=== PATIENT | female | born 1960 | race Caucasian/White ===

== ENCOUNTER 2017-02-17 09:47 | Day surgery (SDC) | payer BC ==
[2017-02-17] MEDS ORDERED: ceFAZolin 2 GM in Premix Bag 1 BAG IV ONE (09:49)
[2017-02-17] MEDS ORDERED: Lactated Ringers 1,000 ML IV SCH (10:00)
--- NOTE | 2017-02-17 11:28 | PCM.PREANE ---
Preanesthetic Assessment - Anesthesia/Transfusion/Family Hx Anesthesia History: Prior Anesthesia Without Reaction Family History of Anesthesia Reaction: No Transfusion History: No Prior Transfusion(s) - Review of Systems General: No Symptoms Pulmonary: No Symptoms Cardiovascular: No Symptoms Gastrointestinal: No symptoms Neurological: No Symptoms Other: Reports: None - Physical Assessment NPO Status Date: 02/16/17 NPO Status Time: 23:30 O2 Sat by Pulse Oximetry: 97 Respiratory Rate: 14 Vital Signs: Last Vital Signs Temp 36.1 C 02/17/17 10:40 Pulse 60 02/17/17 10:40 Resp 14 02/17/17 10:40 BP 116/55 L 02/17/17 10:40 Pulse Ox 97 02/17/17 10:40 Height: 1.65 m Weight: 72.121 kg ASA Class: 2 Mental Status: Alert & Oriented x3 Airway Class: Mallampati = 1 Dentition: Reports: Normal Dentition Lungs: Clear to auscultation Cardiovascular: Regular Rate, Regular Rhythm - Allergies Allergies/Adverse Reactions: Allergies Allergy/AdvReac Type Severity Reaction Status Date / Time tegaderm tape Allergy Rash Uncoded 12/16/16 10:10 [facility] - Anesthesia Plan Pre-Op Medication Ordered: None - Acknowledgements Anesthesia Type Planned: General Anesthesia, MAC Pt an Appropriate Candidate for the Planned Anesthesia: Yes Alternatives and Risks of Anesthesia Discussed w Pt/Guardian: Yes Pt/Guardian Understands and Agrees with Anesthesia Plan: Yes PreAnesthesia Questionnaire - Past Health History Medical/Surgical History: Denies Medical/Surgical History Other HEENT History: wears glasses Cardiovascular History: Reports: None Respiratory History: Reports: None Gastrointestinal History: Reports: GERD, Irritable bowel syndrome Genitourinary History: Reports: Renal calculus Other Genitourinary History: 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 Asymptomatic Psychiatric History: Reports: None Endocrine/Metabolic History: Reports: None Hematologic History: Reports: None Immunologic History: Reports: None Oncologic (Cancer) History: Reports: None Dermatologic History: Reports: None - Past Surgical History Head Surgeries/Procedures: Reports: Shunt HEENT Surgical History: Reports: None Cardiovascular Surgical History: Reports: None Respiratory Surgical History: Reports: None GI Surgical History: Reports: Appendectomy, Cholecystectomy, Other (see below) Other GI Surgeries/Procedures: hemorrhoidectomy Female Surgical History: Reports: Hysterectomy, Tubal ligation Endocrine Surgical History: Reports: None Neurological Surgical History: Reports: C-Spine, Spinal fusion Other Neurological Surgeries/Procedures: Neuroendoscopic placement of Ventric Cath attached to shunt Musculoskeletal Surgical History: Reports: Shoulder surgery Other Musculoskeletal Surgeries/Procedures:: bilateral foot surgery Oncologic Surgical History: Reports: None Dermatological Surgical History: Reports: None - SUBSTANCE USE Smoking Status *Q: Current Every Day Smoker Tobacco Use Within Last Twelve Months: Cigarettes Recreational Drug Use History: No - HOME MEDS Home Medications: Home Meds Zolpidem Tartrate [Zolpidem Tartrate ER] 12.5 mg PO BEDTIME 02/12/17 [History] - CURRENT (IN HOUSE) MEDS Current Meds: Current Medications Lactated Ringer's (Ringers, Lactated) 1,000 mls @ 125 mls/hr IV ASDIRECTED [facility] Last Admin: 02/17/17 10:42 Dose: 125 mls/hr Discontinued Medications Cefazolin Sodium/Dextrose 2 gm (/ Premix) 50 mls @ 100 mls/hr IV ONETIME ONE Stop: 02/17/17 10:18 Preanesthetic Assessment - ANESTHESIA/TRANSFUSION/FAMILY HX Anesthesia/Transfusion History: No Prior Transfusion(s), Prior Anesthesia Family History of Anesthesia Reaction: No Intubation History: Unknown - PHYSICAL ASSESSMENT O2 Sat by Pulse Oximetry: 97 RR: 14 Vital Signs: Last Vital Signs Temp 36.1 C 02/17/17 10:40 Pulse 60 02/17/17 10:40 Resp 14 02/17/17 10:40 BP 116/55 L 02/17/17 10:40 Pulse Ox 97 02/17/17 10:40 Height: 1.65 m Weight: 72.121 kg NPO Status Date: 02/16/17 NPO Status Time: 23:30 - ALLERGIES Allergies/Adverse Reactions: Allergies Allergy/AdvReac Type Severity Reaction Status Date / Time tegaderm tape Allergy Rash Uncoded 12/16/16 10:10 [facility]
[2017-02-17] MEDS ORDERED: ceFAZolin 1 GM Vial ONE (11:52)
[2017-02-17] MEDS ORDERED: Bupivacaine 0.5% 30 ML SDV ONE (11:52)
[2017-02-17] MEDS ORDERED: Lidocaine 1% 20 ML MDV ONE (11:53)
[2017-02-17] MEDS ORDERED: fentaNYL 100 MCG/2 ML SDV ONE (12:16)
[2017-02-17] MEDS ORDERED: Lidocaine 2% 5 ML SDV ONE (12:16)
[2017-02-17] MEDS ORDERED: Midazolam 1 MG/ML 2 ML SDV ONE (12:16)
[2017-02-17] MEDS ORDERED: Propofol 200 MG/20 ML SDV ONE ×2 (12:16→14:52)
[2017-02-17] MEDS ORDERED: Ketorolac 30 MG/ML SDV ONE (12:17)
[2017-02-17] MEDS ORDERED: Ondansetron 4 MG/2 ML SDV ONE (12:17)
[2017-02-17] MEDS ORDERED: fentaNYL 250 MCG/5 ML SDV ONE (12:17)
[2017-02-17] MEDS ORDERED: ePHEDrine 50 MG/ML SDV ONE ×2 (13:48→14:53)
--- NOTE | 2017-02-17 15:25 | PN ---
Preoperative Progress Note. PREOPERATIVE DIAGNOSES: 1. Nonunion of fifth metatarsal right foot. 2. Contracted tendon, fifth toe of the right foot. PLANNED PROCEDURE: Repair of nonunion 5th metatarsal with and without bone graft on the right foot, also capsulotomy with extensor tendon lengthening of the 5th metatarsophalangeal joint, right foot. CONSENT: Signed and in the chart. ANESTHESIA: General. The patient confirms n.p.o. since midnight. History and physical was completed by Marques Neumann and Dr. Marino Washington MD, with no contraindications to surgery. PAST MEDICAL HISTORY: The patient is allergic to Tegaderm. CURRENT MEDICATIONS: Zolpidem tartrate ER 12.5 mg oral tablet, extended release one tablet at bedtime. PAST MEDICAL HISTORY: Includes history of Arnold Chiari syndrome with hydrocephalus, history of migraine headaches and insomnia. PAST SURGICAL HISTORY: Includes appendectomy, cholecystectomy, hemorrhoidectomy, hysterectomy, lower back surgery, neck surgery, catheter placement related to the hydrocephalus, shoulder surgery, and tubal ligation. LABORATORY DATA: White blood cell 8.25, red blood cell 4.34, hemoglobin 13.6, hematocrit 39.6, and platelets 252. Urinalysis was unremarkable. Sodium 143, potassium 4.1, chloride 108, CO2 of 24, BUN 16, creatinine 0.7, calcium 9.0, random glucose 91. INR 0.92, prothrombin time 10.0 seconds and partial thromboplastin time was 27 seconds. EKG showed normal sinus rhythm. Chest x-ray was read as normal. The patient presents for repair of 5th metatarsal nonunion today and also capsulotomy and extensor tendon lengthening at the 5th metatarsophalangeal joint both on the right foot. No contraindications to surgery and no guarantees given or implied. LEROY / FLAQUITA /[id number]
[2017-02-17] MEDS ORDERED: fentaNYL 100 MCG/2 ML SDV IVPUSH PRN (16:23)
[2017-02-17] MEDS ORDERED: HYDROmorphone 2 MG/ML Syringe IVPUSH ONE (16:23)
[2017-02-17] MEDS ORDERED: HYDROmorphone 2 MG/ML Syringe ONE (16:30)
--- NOTE | 2017-02-17 16:44 | PCM.OPNOTE ---
- General Post-Op/Procedure Note Date of Surgery/Procedure: 02/17/17 Operative Procedure(s): 1. repair of nonunion fifth metatarsal right foot with bone graft. 2. capsulotomy and extensor tendon lengthening fifth metatarsalphalangeal joint right foot Findings: consistent with diagnoses Pre Op Diagnosis: 1. nonunion fifth metatarsal right foot. 2. contracted tendon fifth metatarsalphalangeal joint right foot Post-Op Diagnosis: 1. nonunion fifth metatarsal right foot. 2. contracted tendon fifth metatarsalphalangeal joint right foot Anesthesia Technique: General LMA Primary Surgeon: Grabiel Madden Anesthesia Provider: Odin Sharma Pathology: bone debrided from nonunion fifth metatarsal right foot EBL in mLs: 10 Condition: Good Free Text/Narrative:: injectables: 8 ml 0.5% marcaine plain materials: 4-0 vicryl 4-0 prolene Pelican 3.0mm non locking fully threaded T8 screw, 10 mm length, x2 Raj [place] plate, holes, 22 mm Pelican Bio4 bone matrix 2.5 cc Raj 2.0 mm Asnis Micro Cannulated Screw Titanium 20 mm length
--- NOTE | 2017-02-17 16:52 | CR ---
EXAMINATION: Right foot HISTORY: fifth metatarsal nonunion COMPARISON: None TECHNIQUE: 3 fluoroscopic images provided. FINDINGS/IMPRESSION: Operative control films demonstrate screw and plate fixation of a mid fifth met atarsal fracture. An oblique screw is also noted.
--- NOTE | 2017-02-17 17:00 | PCM.POSTAN ---
POST ANESTHESIA ASSESSMENT - MENTAL STATUS Mental Status: alert, oriented - RESPIRATORY Respiratory Status: respiratory rate WNL, airway patent - CARDIOVASCULAR CV Status: pulse rate WNL, blood pressure stable - GASTROINTESTINAL GI Status: no symptoms - POST OP HYDRATION Hydration Status: adequate & stable
--- NOTE | 2017-02-17 18:08 | PCM48HPAN ---
Post Anesthesia Note - EVALUATION WITHIN 48HRS OF ANESTHETIC Vital Signs in Normal Range: Yes Patient Participated in Evaluation: Yes Respiratory Function Stable: Yes Airway Patent: Yes Cardiovascular Function Stable: Yes Hydration Status Stable: Yes Pain Control Satisfactory: Yes Nausea and Vomiting Control Satisfactory: Yes Mental Status Recovered: Yes
[2017-02-17] MEDS ORDERED: Acetaminophen/HYDROcodone 325-5 MG Tab PO PRN (18:24)
[2017-02-17 19:51] VITALS: BP 102/73
--- NOTE | 2017-02-18 01:13 | OR ---
SURGEON: Grabiel Madden DPM DATE OF PROCEDURE: 02/17/2017 IDENTIFICATION.: Patient is a 56-year-old female. PREOPERATIVE DIAGNOSIS: 1. Nonunion 5th metatarsal right foot. 2. Contracted tendon 5th metatarsal phalangeal joint right foot. POSTOPERATIVE DIAGNOSIS: 1. Nonunion 5th metatarsal right foot. 2. Contracted tendon 5th metatarsal phalangeal joint right foot. PROCEDURE: 1. Repair of nonunion 5th metatarsal right foot with bone graft. 2. Capsulotomy and extensor tendon lengthening 5th metatarsophalangeal joint, right foot. ANESTHESIA: General. HEMOSTASIS: Above ankle pneumatic tourniquet inflated on the right lower extremity to a pressure of 250 mmHg after an Esmarch bandage exsanguination. ESTIMATED BLOOD LOSS: 10 mL. MATERIALS: 4-0 Vicryl, 4-0 Prolene. Raj 3.0 mm nonlocking fully threaded T8 screw measuring 10 mm in length x2. [employer] [facility] Turner plate 3 holes 22 mm length. Medical Lake bio4 Bone Matrix 2.5 mL and Medical [place] 2.0 mm Asnis micro cannulated screw titanium 20 mm in length. INJECTABLES: 8 mL of 0.5% Marcaine plain. PATHOLOGY: Bone debrided from nonunion of the 5th metatarsal right foot. CONDITION: The patient tolerated the procedure and anesthesia well without any complications noted or reported. JUSTIFICATION FOR PROCEDURE: The patient, identified by her name, is a 56-year-old patient who presented to my office earlier this month with a complicated history of surgery on the right foot. Initially, it appears that the surgery was to address a tailor's bunion type of deformity and this was several years ago. The patient was seen at that time, and operated on by another urologist whose name I do not have and subsequent to that, the patient developed a nonunion and painful hardware; this hardware was then removed approximately two years ago by the same surgeon. The patient was then treated with casting for approximately three months and was informed by the surgeon that she had healed. Since that time the patient has developed increasing pain to the point where it simply became unbearable for her and upon presenting in my office and being examined, she was x-rayed and clearly this patient has a nonunion over the 5th metatarsal shaft created by an elective osteotomy. It appears that there was an oblique osteotomy done in the 5th metatarsal shaft approximately [address] from the base and there was a nonunion present. Also clinically, the patient has a lot of pain in the 5th metatarsophalangeal joint and is also upset that her 5th toe is cocked up and does not touch the ground even on weightbearing. Clinically, I noted that the patient had an extremely tight extensor tendon going over the 5th ray, clearly that is impacting the deformity on the 5th toe and additionally the 5th metatarsophalangeal joint is contracted further exacerbating the state of the 5th toe. I explained to the patient that while surgery at this point is advisable to attempt and corrected the nonunion, it has at best in my opinion, a 50% chance of succeeding in correcting the nonunion. The patient also stated that she was treated with a bone stimulator after the prior 2nd surgery and additionally the patient smokes approximately half pack per day at the time that I saw her, however, I advised her that it is imperative that she do everything she can to stop or greatly reduced her smoking in order to have a more reasonable chance of healing this nonunion. This morning, the patient did inform me prior to surgery that she was down to one cigarette per day, which can only be helpful. Conservative treatments are simply not possible to address these deformities. The tendon needs to be lengthened and the nonunion needs to be addressed. I advised the patient that in the event that the nonunion persists and that even after surgical correction, we are unable to relieve her enough pain, partial amputation of the 5th ray would be the logical next step. CONSENT: The patient was told of the benefits as well as the possible side effects of surgery and the patient signed the consent form with a witness present and all patient questions were answered. No guarantees of success were given or implied. DESCRIPTION OF THE PROCEDURE: The patient was brought into the operating room and placed on the operating table in supine position. At which time, an aseptic scrub and drape was performed about the patient's right lower extremity. After anesthesia had been induced as described above, the incision line from prior surgery was utilized to guide the incision for this surgery, therefore no marking pen was utilized. After an Esmarch bandage exsanguination, the pneumatic tourniquet was inflated to a pressure of 250 mmHg and procedure one commenced. Procedure #1. Capsulotomy of the 5th metatarsophalangeal joint with extensor tendon lengthening, right foot. The incision was made from proximal to distal over the prior incision line from approximately mid 5th metatarsal shaft, dorsal aspect proceeding distally over the proximal phalanx of the 5th toe. A large amount of scar tissue was noted. Adhesions were present throughout the area and were carefully dissected to reveal the extensor tendon of the 5th ray of the right foot. Care was taken to cut clamp and/or ligate any small bleeders. Any identified neurovascular structures and muscle bellies were retracted as necessary and protected and the incision was deepened and undermining of the skin and subcutaneous tissue was done using a mosquito curved hemostat. The extensor tendon was identified and was incised from proximal to distal. To achieve a Z-plasty of the tendon the tendon edges were then retracted proximally and distally and tagged with 4-0 Vicryl suture. Attention was then focused on the 5th metatarsal phalangeal joint. Further adhesions were dissected away with sharp and blunt dissection and a McGlamry elevator was used to perform a capsulotomy of the 5th metatarsophalangeal joint. Attention was then directed to the nonunion and procedure #2 commenced. Procedure #2. Repair of the nonunion of the 5th metatarsal of the right foot with bone graft. Dissection down to bone was performed over the identified bone callus and intraoperative fluoroscopy was utilized throughout this procedure. A small bone rongeur was used to clip away portions of the bone callus which then revealed the nonunion which was oblique running proximal lateral to distal medial. A large amount of nonviable material including full bone and scar tissue was found and removed, a portion of the debrided bone was then sent to pathology for gross and histologic examination. Using a small K-wire multiple holes were drilled on both the proximal and distal sides of the 5th metatarsal bone about the nonunion site. No intramedullary or bleeding was noted and normally I would expect to see some sign of bleeding there even under hemostasis. The area was flushed with copious amounts of normal sterile saline, re-examined and a small amount of further bone was debrided. I then realigned the distal portion of the nonunion to achieve improved alignment with the proximal portion and a [employer] [facility] K-wire was used to guide the screw, (during this process the K-wire broke both pieces were removed from the surgical site) which was then measured and a 20 mm length Medical [place] 2.0 mm Asnis micro cannulated titanium screw was inserted from dorsal distal to proximal plantar lateral crossing the nonunion site and was tightened to achieve improved compression at the site. The remaining gap was filled with bone matrix taken from the 2.5 mL supply of Raj bio4 bone matrix material. The area was then re-examined and under intraoperative fluoroscopy, I determined the appropriate area to place a Medical [place] 22 mm long three-hole plate with one hole distal to the nonunion site and two holes proximal. This was placed on the lateral aspect of the shaft of the 5th metatarsal. Holes were drilled, one through the distal hole and one on the proximal most hole and both sides were fixated of this plate with a [place] 3.0 mm x 10 mm length nonlocking fully threaded T8 screw. Greatly improved alignment was noted on intraoperative fluoroscopy as well as compression of the nonunion site that we had prepared. Attention was then returned to the extensor tendon which was then reapproximated under proper physiologic tension and this resulted in a lengthening of the tendon. The toe which had previously been elevated was then judged to be lowered into alignment with the other toes of the foot and this should result in some improved function and appearance for the patient as well as reduction in pain. 8 mm of 0.5% Marcaine plain was infiltrated after closure of the incision site, which was performed with 4-0 Vicryl to reapproximate the deep and subcutaneous tissue, and 4-0 Prolene suture for the superficial skin. The tourniquet was deflated, as it achieved the 2-hour roxi. It was deflated promptly and closure of the distal portion of the superficial skin was completed after deflation of the tourniquet. The area was covered with Betadine-soaked Xeroform gauze, Kerlix gauze and a Kerlix roll and then secured with a 2-inch TOR bandage. An Orthoglass posterior splint was then applied after appropriately layering the lower extremity of the right foot with cast padding, and the posterior splint was secured with a 4-inch TOR bandage. The patient tolerated the procedure and anesthesia well with no complications noted or reported. And there was a prompt hyperemic response to all digits of the right lower extremity upon deflation of the tourniquet. The patient was then transferred to the recovery room and after a brief stay in recovery room. The patient is to be discharged home with instructions for postoperative care. The patient will be strictly nonweightbearing. The patient has analgesic medication prescription and patient has my cell phone and office phone number and will be following up in the 1st part of next week, unless concerns arise prior to that, in which case she will be seen sooner. LEROY SAMS /[id number] DAYAMI
== END 2017-02-17 19:20 | disposition home or self-care (01) ==
LOC: MW.SDS 09:47
PROVIDERS: ATTEND Podiatrist Foot & Ankle Surgery
PROC: 0SNM0ZZ Release Right Metatarsal-Phalangeal Joint, Open Approach (ICD-10-PCS; principal; 2017-02-17)
PROC: 0QU Lower Bones, Supplement (ICD-10-PCS; 2017-02-17)
DX: M96.0 Pseudarthrosis after fusion or arthrodesis (principal); M62.471 Contracture of muscle, right ankle and foot; K58.9 Irritable bowel syndrome, unspecified; G47.00 Insomnia, unspecified; Q07.02 Arnold-Chiari syndrome with hydrocephalus; F17.210 Nicotine dependence, cigarettes, uncomplicated; Z87.442 Personal history of urinary calculi; Y83.8 Other surgical procedures as the cause of abnormal reaction of the patient, or of later complication, without mention of misadventure at the time of the procedure
CPT/HCPCS: 28270; 28322; 76001; 88304; 88311; A9270; C1713; J1885; J2250; J2405; J3010; J7120; 01480; J0690; J2704

== ENCOUNTER 2017-10-12 07:35 | Day surgery (SDC) | payer BC ==
[~2017-10-12 07:35] MED LIST: Lactated Ringers 1,000 ML IV SCH; ceFAZolin 2 GM in Premix Bag 1 BAG IV ONE
[2017-10-12] MEDS ORDERED: fentaNYL 100 MCG/2 ML SDV ONE ×3 (08:33→12:04)
[2017-10-12] MEDS ORDERED: Propofol 200 MG/20 ML SDV ONE (08:33)
[2017-10-12] MEDS ORDERED: Ondansetron 4 MG/2 ML SDV ONE (08:33)
[2017-10-12] MEDS ORDERED: Midazolam 1 MG/ML 2 ML SDV ONE (08:34)
--- NOTE | 2017-10-12 08:41 | PCM.PREANE ---
Preanesthetic Assessment - Anesthesia/Transfusion/Family Hx Anesthesia History: Prior Anesthesia Without Reaction Family History of Anesthesia Reaction: No Transfusion History: No Prior Transfusion(s) Intubation History: Unknown - Review of Systems General: No Symptoms Pulmonary: No Symptoms Cardiovascular: No Symptoms Gastrointestinal: No Symptoms Neurological: No Symptoms Other: Reports: None - Physical Assessment NPO Status Date: 10/11/17 NPO Status Time: 23:00 O2 Sat by Pulse Oximetry: 98 Respiratory Rate: 16 Vital Signs: Last Vital Signs Temp 36.5 C 10/12/17 07:57 Pulse 57 L 10/12/17 07:57 Resp 16 10/12/17 07:57 BP 116/60 10/12/17 07:57 Pulse Ox 98 10/12/17 07:57 Height: 1.65 m Weight: 81.193 kg ASA Class: 2 Mental Status: Alert & Oriented x3 Airway Class: Mallampati = 2 Dentition: Reports: Normal Dentition Thyro-Mental Finger Breadths: 3 Mouth Opening Finger Breadths: 3 ROM/Head Extension: Full Lungs: Clear to Auscultation, Normal Respiratory Effort Cardiovascular: Regular Rate, Regular Rhythm - Allergies Allergies/Adverse Reactions: Allergies Allergy/AdvReac Type Severity Reaction Status Date / Time tegaderm tape Allergy Rash Uncoded 10/07/17 12:34 - Blood Blood Available: No - Anesthesia Plan Pre-Op Medication Ordered: None - Acknowledgements Anesthesia Type Planned: General Anesthesia Pt an Appropriate Candidate for the Planned Anesthesia: Yes Alternatives and Risks of Anesthesia Discussed w Pt/Guardian: Yes Pt/Guardian Understands and Agrees with Anesthesia Plan: Yes PreAnesthesia Questionnaire - Past Health History Medical/Surgical History: Denies Medical/Surgical History Other HEENT History: wears glasses Cardiovascular History: Reports: None Respiratory History: Reports: None Gastrointestinal History: Reports: Chronic Diarrhea, Irritable Bowel Syndrome, Other (See Below) (heartburns) Genitourinary History: Reports: Other (See Below) Other Genitourinary History: recent UTI, finished antibiotics on 10-02-17 ONLINE JOURNALIST History: Reports: None Musculoskeletal History: Reports: None Neurological History: Reports: Other (See Below) Other Neuro History: Arnold-Chiari Syndrome with Hydrocephalus Psychiatric History: Reports: None Endocrine/Metabolic History: Reports: None Hematologic History: Reports: None Immunologic History: Reports: None Oncologic (Cancer) History: Reports: None Dermatologic History: Reports: None - Past Surgical History GI Surgical History: Reports: Appendectomy, Cholecystectomy Female Surgical History: Reports: Hysterectomy, Tubal Ligation Neurological Surgical History: Reports: C-Spine, Lumbar Spine, Spinal Fusion, Other (See Below) Other Neurological Surgeries/Procedures: has YOUTH MANAGER shunt '07 in [place] Musculoskeletal Surgical History: Reports: Shoulder Surgery, Other (See Below) Other Musculoskeletal Surgeries/Procedures:: Bilateral RTCR, bunionectomy ,both feet(has screw in right foot) - SUBSTANCE USE Smoking Status *Q: Former Smoker (quit 02/05) Tobacco Use Within Last Twelve Months: Cigarettes Days Per Week of Alcohol Use: 1 Recreational Drug Use History: No - HOME MEDS Home Medications: Home Meds Zolpidem Tartrate [Zolpidem Tartrate ER] 12.5 mg PO BEDTIME 02/12/17 [History] Acetaminophen/HYDROcodone [[place] 325-5 MG] 1 tab PO Q4H #30 tablet 02/17/17 [Rx] - CURRENT (IN HOUSE) MEDS Current Meds: Current Medications Lactated Ringer's (Ringers, Lactated) 1,000 mls @ 125 mls/hr IV ASDIRECTED [facility] Last Admin: 10/12/17 07:59 Dose: 125 mls/hr Discontinued Medications Cefazolin Sodium/Dextrose 2 gm (/ Premix) 50 mls @ 100 mls/hr IV ONETIME ONE Stop: 10/11/17 18:07
[2017-10-12] MEDS ORDERED: Bupivacaine 0.5% 30 ML SDV ONE (09:52)
[2017-10-12] MEDS ORDERED: ePHEDrine 50 MG/ML SDV ONE (10:22)
[2017-10-12] MEDS ORDERED: diphenhydrAMINE 50 MG/ML SDV ONE (10:43)
[2017-10-12] MEDS ORDERED: Dexamethasone 4 MG/ML 5 ML MDV ONE (10:43)
[2017-10-12] MEDS ORDERED: Ketorolac 30 MG/ML SDV ONE (11:20)
[2017-10-12] MEDS: fentaNYL 100 MCG/2 ML SDV IVPUSH PRN ×4 (12:05→12:20)
--- NOTE | 2017-10-12 12:40 | PCM.POSTAN ---
POST ANESTHESIA ASSESSMENT - MENTAL STATUS Mental Status: Alert, Oriented - RESPIRATORY Respiratory Status: Respiratory Rate WNL, Airway Patent, O2 Saturation Stable - CARDIOVASCULAR CV Status: Pulse Rate WNL, Blood Pressure Stable - GASTROINTESTINAL GI Status: No Symptoms - POST OP HYDRATION Hydration Status: Adequate & Stable
[2017-10-12] MEDS ORDERED: Acetaminophen/HYDROcodone 325-5 MG Tab PO PRN (12:48)
[2017-10-12 14:40] VITALS: BP 106/64
--- NOTE | 2017-10-12 16:15 | CR ---
EXAMINATION: Right foot HISTORY: Amputation COMPARISON: 02/17/2017 TECHNIQUE: 4 fluoroscopic images provided. FINDINGS/IMPRESSION: Operative control films demonstrate amputation of the fifth digit distal to the proximal fifth metatarsal.
--- NOTE | 2017-10-12 17:50 | PCM.OPNOTE ---
- General Post-Op/Procedure Note Date of Surgery/Procedure: 10/12/17 Operative Procedure(s): amputation of fifth toe and partial resection of fifth metatarsal right foot Findings: consistent with diagnosis Pre Op Diagnosis: fracture of fifth metatarsal bone with non-union Post-Op Diagnosis: fracture of fifth metatarsal bone with non-union Anesthesia Technique: General LMA Anesthesia Provider: Ying Levin Pathology: amputated fifth toe and resected portion with hardware of fifth metatarsal bone right foot EBL in mLs: 50 Complications: none Condition: Good Free Text/Narrative:: Intake & Output 10/12/17 10/12/17 10/12/17 06:59 14:59 22:59 Intake Total 1999 Balance 1999 injectables: 0.5% marcaine plain materials: 3-0 vicryl, 4-0 vicryl, 4-0 prolene
--- NOTE | 2017-10-13 08:38 | OR ---
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 PROCEDURES PERFORMED: 1. Amputation of fifth toe, right foot. 2. Partial resection of fifth metatarsal, right foot. ANESTHESIA: General. HEMOSTASIS: Above-ankle pneumatic tourniquet inflated to a pressure of 250 mmHg after an Esmarch bandage exsanguination of the right lower extremity. ESTIMATED BLOOD LOSS: 50 mL. INJECTABLES: 10 mL of 0.5% Marcaine plain. PATHOLOGY: Bone consisting of the amputated fifth toe of the right foot and the resected distal portion of the fifth metatarsal of the right foot, including hardware from prior surgery. MATERIALS: 3-0 Vicryl, 4-0 Vicryl, 4-0 Prolene. CONDITION: The patient tolerated the procedure and the anesthesia well without any complications noted or reported. JUSTIFICATION FOR THE PROCEDURE: The patient, Ms. Hayden, is a patient, who has previously undergone surgery with ks for the same structure, the fifth metatarsal specifically, on the right foot. 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 Initially, the hardware had been deemed too painful and was removed by that same surgeon several years ago. Then, the patient was immobilized for an extended period of time, and the patient related to me that she was then told that everything has healed up. However, there was clearly a nonunion when the patient first presented in my office. She first presented to me on January 27, 2017. The patient desired correction of the problem, and I agreed to make an attempt; however, I advised the patient that the distal portion of the bone was most likely nonviable. The patient insisted that she wanted to try to save the bone and the fifth toe articulating with it, and I agreed to attempt to salvage this situation by once again installing hardware on the fifth metatarsal, resecting obviously nonviable portions of bone, and utilizing bone graft. This was done approximately 7-8 months ago. The patient, at that time, also had a procedure to lengthen the extensor tendon, which had propped up the fifth toe significantly. I lengthened the tendon to the best of my ability in that same surgery. However, after getting some initial relief, the toe has retracted again, and the entire area remained painful for the patient, and the patient desires that this be addressed, as discussed, through amputation as necessary. The patient, Ms. Hayden, has truly exhausted both conservative and more conservative surgical treatment. She understands the benefits, as well as possible side effects of the surgery, which have been discussed repeatedly and in detail with her, and she has consented for surgical correction today. The patient's consent form was reviewed with all patient questions answered, no guarantees expressed or implied. The patient signed the patient consent form with a witness present, was placed in the patient's chart, and I also signed the form. DESCRIPTION OF PROCEDURE: The patient, identified as Mrs. Hayden, was brought to the operating room, placed on the operating table in the supine position, at which time, an aseptic scrub and drape was performed about the patient's right lower extremity, after general anesthesia had been induced as described above. The right ankle tourniquet was inflated to 250 mmHg after an Esmarch bandage exsanguination of the right lower extremity, and attention was directed to the dorsal lateral right foot, which had previously been marked with a marking pen to plan the incision and procedure #1 commenced. PROCEDURE #1: Amputation of fifth toe of the right foot. A racket type of incision had been planned about the right fifth toe and the right fifth toe was grasped with a towel clamp, and using a 15 blade, an incision was made around the fifth toe with each incision side approximating on the dorsal aspect to complete the racket type of incision. The incision was deepened down to the level of bone. All structures traversing the incision site were transected, any small neurovascular structures were cut, clamped, or ligated. The fifth toe was disarticulated at the metatarsophalangeal joint, removed in toto, and placed in a sterile specimen container to be sent to pathology for examination. PROCEDURE #2: Partial resection of fifth metatarsal, right foot. Utilizing the opening created by the first procedure and extending the incision along the dorsal lateral aspect of the right foot, using the prior incision line from the surgery earlier in the year, a linear incision measuring approximately 6 cm was made, and this was then deepened down through the level of subcutaneous tissue and eventually to bone, with care taken to carefully retract away any vital structures and to cut, clamp, ligate any small neurovascular structures traversing the incision sites. The fifth metatarsal bone was dissected free from all of its attachments and, utilizing an oscillating saw, was transected in a beveled angle just proximal to the plate, which had been placed during the prior surgery. This preserved the base of the fifth metatarsal, which, due to its numerous attachments, was desirable to maintain intact. The remaining bone was removed, including the plate and screws that were imbedded in it from the prior surgery. This was added to the same specimen container containing the toe and was sent to pathology for examination. A power rasp was used to rasp smooth the distalmost portion of the remaining fifth metatarsal, and then the area was flushed with copious amounts of normal sterile saline in preparation for layered soft tissue closure. The deep tissue was reapproximated using 3-0 Vicryl suture, the subcutaneous level was reapproximated using 4-0 Vicryl suture, and the superficial skin was reapproximated using 4-0 Prolene suture. It should be noted that, to reapproximate the skin and tissue under proper small amount of physiologic tension, the skin was trimmed as necessary for best fit, using an 11 blade. 10 mL of 0.5% Marcaine plain was infiltrated about the site of surgery, and the incision site was covered with Betadine-soaked Xeroform gauze followed by fluff gauze and Kerlix roll and secured with an Blas bandage. The tourniquet was deflated and a prompt hyperemic response was noted to all the remaining digits of the right foot. The patient tolerated the procedure and the anesthesia well with no complications noted. There was a noted amount of bleeding from the distalmost part of the incision site, after deflation of the tourniquet, and the dressings were taken down, pressure was applied, and after hemostasis was better achieved, the dressings were applied with all new dressings equal to the first set of dressings. The patient was then transferred to the recovery room, having tolerated the procedure and the anesthesia well with all vital signs stable. After brief stay in the recovery room, the patient is being discharged home with prescription for adequate analgesic medication and antinausea medication for at- home use. The patient was also given written instructions, as well as verbal, including nonweightbearing to the right lower extremity and will be using a scooter to get around. The patient is to follow up in my office next week. LEROY SAMS /[id number] DAYAMI
== END 2017-10-12 14:00 | disposition home or self-care (01) ==
LOC: MW.SDS 07:35
PROVIDERS: ATTEND Podiatrist Foot & Ankle Surgery
DX: S92.354K Nondisplaced fracture of fifth metatarsal bone, right foot, subsequent encounter for fracture with nonunion (principal); Z88.8 Allergy status to other drugs, medicaments and biological substances; Z79.899 Other long term (current) drug therapy; Z90.49 Acquired absence of other specified parts of digestive tract; Z90.710 Acquired absence of both cervix and uterus; Z98.51 Tubal ligation status; F17.210 Nicotine dependence, cigarettes, uncomplicated
CPT/HCPCS: 28122; 28820; 76000; A9270; J0690; J1100; J1200; J1885; J2250; J2405; J3010; J7120; 01480; 88304; 88311; J2704